=== PATIENT | male | born 1935 | race Hispanic/Latino ===

== ENCOUNTER 2016-07-26 17:08 | Emergency (ER) | payer MEDICARE, MEDICAID ==
[~2016-07-26] VITALS: Ht 160 cm; Wt 81.8 kg
[~2016-07-26 17:08] MED LIST: ALBUTEROL S2.5 MG/.5 IN; AMBIEN5 MG PO; AMOXICILLIN500 MG OR; ASPIRIN325 MG PO; ATENOLOL50 MG OR; CELEBREX200 MG PO; CLARITIN10 M1 PO; CLARITIN10 MG PO; CLONAZEPAM0.5 MG PO; COSOPT1 ML OU; DICLOFENAC SODI75 MG PO; DORZOL/TIMOL1 ML OU; DYMISTA1 SPR; FLEXERIL PO; GLIPIZIDE ER10 M1 PO; GLIPIZIDE ER5 M1 OR; GLIPIZIDE10 MG PO; GLYBURIDE2.5 MG PO; HYDROCHLOROT12.5 MG PO; HYDROCHLOROT25 MG OR; LISINOPRIL20 MG PO; LORATADINE10 M1 PO; LORTAB 7.5 PO; LOVASTATIN20 M1 OR; LOVASTATIN40 MG PO; MEGACE20 MG PO; MEVACOR20 MG PO; NAPROSYN375 MG PO; NAPROSYN500 MG PO; OMEPRAZOLE20 M2 PO; PREDNISONE10 M1 OR; PREDNISONE20 MG PO; PRILOSEC20 MG/CAP PO; QNASL80 MCG; RESTORIL15 MG OR; ROBITUSSIN AC10 ML OR; SINGULAIR10 MG PO; SYSTANE OP; THEO-24200 MG PO; XYZAL5 MG PO; ZANTAC300 MG OR
[2016-07-26 17:37] LABS: HEMATOCRIT 37.8 % (39.0-50.0); HEMOGLOBIN 12.5 g/dl (14.0-18.0); IMMATURE GRANULOCYTES 0.5 % (0.0-1.0); MEAN CELL VOLUME 89.8 fL CALC (80.0-100.0); MEAN CORPUSCULAR HGB 29.7 pG CALC (26.0-32.0); MEAN CORPUSCULAR HGB CONC 33.1 g/L CALC (32.0-36.0); NEUT# 14.3 thou/uL (1.82-7.42); RED BLOOD COUNT 4.21 mill/uL (4.70-6.10)
[2016-07-26 17:50] LABS: PROTHROMBIN TIME 11.4 SECONDS (9.0-12.5)
[2016-07-26 17:53] LABS: ALBUMIN 4.1 g/dL (3.2-5.0); ALKALINE PHOSPHATASE 84 u/l (38-126); ANION GAP 21 (6-22 (CALC)); BILIRUBIN, TOTAL 1.4 mg/dL (0.0-1.4); BUN 28 mg/dL (8-23); BUN/CREATININE RATIO 15 (12-20 (CALC)); CALCIUM 9.1 mg/dL (8.4-10.2); CARBON DIOXIDE 18 mmol/l (22-30); CHLORIDE 109 mmol/l (95-108); CREATININE 1.8 mg/dL (0.7-1.3); GFR 37 ML/MIN (>=60 (CALC)); GFR FOR AFR.AMER. 44 ML/MIN (>=60 (CALC)); GLUCOSE 282 mg/dL (82-115); LIPASE 33 u/l (23-300); POTASSIUM 4.1 mmol/l (3.5-5.1); SGOT/AST 33 u/l (19-48); SGPT/ALT 25 u/l (11-66); SODIUM 145 mmol/l (137-146); TOTAL PROTEIN 7.9 g/dL (6.3-8.2)
[2016-07-26 17:54] LABS: ETHYL ALCOHOL 0 mg/dl (0-30)
[2016-07-26 18:19] LABS: MYOGLOBIN 3061 ng/mL (0 - 121)
[2016-07-26 18:47] LABS: URINE BILIRUBIN - DIPSTICK NEGATIVE (NEGATIVE); URINE BLOOD DIPSTICK NEGATIVE (NEGATIVE); URINE CLARITY CLEAR; URINE COLOR YELLOW; URINE GLUCOSE - DIPSTICK NEGATIVE (NEGATIVE); URINE KETONE 15 mg/dL (NEGATIVE); URINE LEUK ESTERASE NEGATIVE (NEGATIVE); URINE NITRITE - DIPSTICK NEGATIVE (Negative); URINE PROTEIN - DIPSTICK TRACE mg/dL (NEG-TRACE); URINE SPECIFIC GRAVITY 1.025
[2016-07-26 18:49] LABS: COCAINE NEGATIVE (NEGATIVE)
[2016-07-26 18:50] LABS: BARBITURATES NEGATIVE (NEGATIVE); METHADONE NEGATIVE (NEGATIVE); OXCYCODONE NEGATIVE (NEGATIVE); TETRAHYDROCANNABIONOL NEGATIVE (NEGATIVE); TRICYLIC ANTIDEPRESSANTS NEGATIVE (NEGATIVE)
[2016-07-26 19:30] VITALS: BP 156/85
== END 2016-07-26 19:22 | disposition short-term general hospital (02) ==
LOC: ED 17:08
PROVIDERS: Emergency Medicine
PROC: 0BH17EZ Insertion of Endotracheal Airway into Trachea, Via Natural or Artificial Opening (ICD-10-PCS; principal; 2016-07-26)
PROC: 0T9B70Z Drainage of Bladder with Drainage Device, Via Natural or Artificial Opening (ICD-10-PCS; 2016-07-26)
DX: I63.9 Cerebral infarction, unspecified (principal); R50.9 Fever, unspecified; R40.20 Unspecified coma; R94.31 Abnormal electrocardiogram [ECG] [EKG]